=== PATIENT | female | born 1980 | race Caucasian/White ===

== ENCOUNTER 2021-05-09 12:28 | Outpatient (CLI) | payer OTHER | END 2021-05-09 12:29 | disposition home or self-care (01) | LOC: BICMAMMO 12:28 | PROVIDERS: ATTEND Internal Medicine | DX: Z12.31 Encounter for screening mammogram for malignant neoplasm of breast (principal); Z80.3 Family history of malignant neoplasm of breast | CPT/HCPCS: 77063; 77067 ==

== ENCOUNTER 2023-08-30 15:14 | Outpatient (CLI) | payer OTHER | END 2023-08-30 15:15 | disposition home or self-care (01) | LOC: BICMAMMO 15:14 | PROVIDERS: ATTEND Internal Medicine | DX: Z12.31 Encounter for screening mammogram for malignant neoplasm of breast (principal); Z80.3 Family history of malignant neoplasm of breast | CPT/HCPCS: 77063; 77067 ==